=== PATIENT | male | born 1985 ===

== ENCOUNTER 2017-05-19 16:18 | Emergency (ER) | payer SELFPAY ==
[2017-05-19 16:23] VITALS: BMI 32.1
[2017-05-19 16:25] VITALS: BP 136/92; PULSE 93; RESP 18; TEMP 98.7; O2SAT 98
--- NOTE | 2017-05-19 16:50 | C.PDOC ---
History Of Present Illness 32 year old male presents to the emergency department complaining of right eye redness since waking up today. Associated with crusting and discharge. States he slept with contacts in and woke up like this. He wears monthly disposable contacts. No visual changes, foreign body sensation, fever, or diplopia. PMD: none Time Seen by Provider: 05/19/17 16:29 Chief Complaint (Nursing): Eye Problem History Per: Patient History/Exam Limitations: no limitations Onset/Duration Of Symptoms: Days (x1) Current Symptoms Are (Timing): Still Present Injury To Eye?: No Wears Contact Lens?: Yes Past Medical History Reviewed: Historical Data, Nursing Documentation, Vital Signs Vital Signs: Last Vital Signs Temp 98.7 F 05/19/17 16:23 Pulse 93 H 05/19/17 16:23 Resp 18 05/19/17 16:23 BP 136/92 H 05/19/17 16:23 Pulse Ox 98 05/19/17 18:45 - Medical History PMH: No Chronic Diseases Surgical History: No Surg Hx Family History: States: Unknown Family Hx - Social History Hx Tobacco Use: Yes Hx Alcohol Use: Yes Hx Substance Use: No - Immunization History Hx Tetanus Toxoid Vaccination: No Hx Influenza Vaccination: No Hx Pneumococcal Vaccination: No Review Of Systems Except As Marked, All Systems Reviewed And Found Negative. Constitutional: Negative for: Fever Eyes: Positive for: Redness (right eye, (+) discharge). Negative for: Vision Change, Other (foreign body sensation) Physical Exam - Physical Exam Appears: Non-toxic, No Acute Distress Skin: Normal Color, Warm, Dry Head: Atraumatic, Normacephalic Eye(s): bilateral: PERRL, EOMI, right: Other (Mild conjunctival injection and discharge to right eye), left: Normal Inspection Nose: Normal Oral Mucosa: Moist Neck: Normal ROM, Supple Chest: Symmetrical Respiratory: No Accessory Muscle Use, Other (speaking full sentences) Neurological/Psych: Oriented x3, Normal Speech, No Other (focal deficits) ED Course And Treatment O2 Sat by Pulse Oximetry: 98 (RA) Pulse Ox Interpretation: Normal Progress Note: Instructed follow up with ophthalmology in 1-2 days. Disposition Counseled Patient/Family Regarding: Diagnosis, Need For Followup, Rx Given - Disposition Referrals: Jesu Smith MD [Staff Provider] - Disposition: HOME/ ROUTINE Disposition Time: 16:46 Condition: STABLE Additional Instructions: Discontinue contact lens use for at least 2 weeks. Discard lens case, drops, and disposable lenses. Prescriptions: Ciprofloxacin 0.3% [Ciloxan 0.3% Ophth SOLN] 2 drop OU Q2 #1 bottle Instructions: Conjunctivitis (Pinkeye) (DC) Forms: [facility] (Swedish), Work Excuse - POA Present On Arrival: None - Clinical Impression Clinical Impression: Conjunctivitis - PA / WORK FORCE ADVISOR / Resident Statement MD/DO has reviewed & agrees with the documentation as recorded. - Scribe Statement The provider has reviewed the documentation as recorded by the Scribe (Addie Levy) All medical record entries made by the Scribe were at my direction and personally dictated by me. I have reviewed the chart and agree that the record accurately reflects my personal performance of the history, physical exam, medical decision making, and the department course for this patient. I have also personally directed, reviewed, and agree with the discharge instructions and disposition.
== END 2017-05-19 17:08 | disposition home or self-care (01) ==
LOC: C.ER 16:18
DX: H10.9 Unspecified conjunctivitis (principal)

== ENCOUNTER 2017-10-26 12:15 | Emergency (ER) | payer MEDICAID, OTHER ==
[2017-10-26 12:15] VITALS: BMI 32.1
[2017-10-26 12:21] VITALS: BP 136/93; PULSE 91; RESP 18; TEMP 99.6; O2SAT 98
--- NOTE | 2017-10-26 12:45 | C.PDOC ---
History Of Present Illness 32 year old male present sot ED complaining of right calf pain from last night after playing basketball. Patient states he felt a "pop" in his right calf. Patient states he is ambulate with pain. Denies any joint injury and offers no other medical complaints. Time Seen by Provider: 10/26/17 12:18 Chief Complaint (Nursing): Lower Extremity Problem/Injury History Per: Patient History/Exam Limitations: no limitations Onset/Duration Of Symptoms: Days Current Symptoms Are (Timing): Still Present Recent travel outside of the [place]: No Past Medical History Reviewed: Historical Data, Nursing Documentation, Vital Signs Vital Signs: Last Vital Signs Temp 99.6 F 10/26/17 12:21 Pulse 91 H 10/26/17 12:21 Resp 18 10/26/17 12:21 BP 136/93 H 10/26/17 12:21 Pulse Ox 98 10/26/17 12:51 Surgical History: No Surg Hx Family History: States: No Known Family Hx - Social History Hx Tobacco Use: Yes Hx Alcohol Use: Yes Hx Substance Use: No - Immunization History Hx Tetanus Toxoid Vaccination: No Hx Influenza Vaccination: No Hx Pneumococcal Vaccination: No Review Of Systems Except As Marked, All Systems Reviewed And Found Negative. Musculoskeletal: Positive for: Other (right calf pain) Physical Exam - Physical Exam Appears: Non-toxic, No Acute Distress Skin: Warm, Dry Head: Atraumatic, Normacephalic Eye(s): bilateral: Normal Inspection, PERRL, EOMI Nose: Normal Chest: Symmetrical Cardiovascular: Rhythm Regular, No Murmur Respiratory: Normal Breath Sounds, No Rales, No Rhonchi, No Wheezing Gastrointestinal/Abdominal: Normal Exam, Soft, No Tenderness Extremity: Calf Tenderness (right calf), No Other (thompsons test, homans test, cellulitic process) Neurological/Psych: Oriented x3, Normal Speech ED Course And Treatment O2 Sat by Pulse Oximetry: 98 (RA) Pulse Ox Interpretation: Normal Medical Decision Making Medical Decision Making: Impression: right calf pain Plan * Ibuprofen 600 mg PO * Vasclab * * 1319 - negative doppler. Will treat for calf strain. Patient discharged home to follow up with pmd within 2 days Disposition Counseled Patient/Family Regarding: Studies Performed, Diagnosis, Need For Followup, Rx Given - Disposition Referrals: [facility] [Outside] Disposition: HOME/ ROUTINE Disposition Time: 13:20 Condition: STABLE Additional Instructions: follow up with your doctor or medical clinic within 2 days call to make an appointment take medication as needed for pain return to ER if symptoms worsens or progress Prescriptions: Naproxen [Naprosyn] 500 mg PO BID PRN #16 tab PRN Reason: Pain, Moderate (4-7) Instructions: Muscle Strain Forms: [facility] (Tanzanian), General Discharge Instructions - Clinical Impression Clinical Impression: Muscle strain - Scribe Statement The provider has reviewed the documentation as recorded by the Nerissa Brunoed Provider Attestation: All medical record entries made by the Nerissa were at my direction and personally dictated by me. I have reviewed the chart and agree that the record accurately reflects my personal performance of the history, physical exam, medical decision making, and the department course for this patient. I have also personally directed, reviewed, and agree with the discharge instructions and disposition.
--- NOTE | 2017-10-27 10:33 | VASCLAB ---
Date of service: 10/26/2017 PROCEDURE: Right Lower Extremity Venous Duplex Exam. HISTORY: calf pain PRIORS: None. TECHNIQUE: Right common femoral, femoral, popliteal and posterior tibial, peroneal and great saphenous veins were evaluated. Flow was assessed with color Doppler, compressibility, assessment of phasic flow and augmentation response. Report prepared by NOEMI Telles, RVT FINDINGS: RIGHT: 1. Common Femoral Vein: 1.1. Compressibility - Fully compressible: Thrombus - None: Flow - Phasic: Augmentation -Normal: Reflux - None. 2. Femoral Vein: 2.1. Compressibility - Fully compressible: Thrombus - None: Flow - Phasic: Augmentation -Normal: Reflux - None. 3. Popliteal Vein: 3.1. Compressibility - Fully compressible: Thrombus - None: Flow - Phasic: Augmentation -Normal: Reflux - None. 4. Posterior Tibial Vein: 4.1. Compressibility - Fully compressible: Thrombus - None: Flow - Phasic: Augmentation -Normal: Reflux - None. 5. Peroneal Vein: 5.1. Compressibility - Fully compressible: Thrombus - None: Flow - Phasic: Augmentation -Normal: Reflux - None. 6. Great Saphenous Vein: 6.1. Compressibility - Fully compressible: Thrombus -None: Flow - Phasic: Augmentation - Normal: Reflux - None. OTHER FINDINGS: IMPRESSION: No evidence of deep or superficial vein thrombosis of the right lower extremity with excellent venous flow. Normal valve function noted of the right side. Normal venous flow noted in the left common femoral vein.
== END 2017-10-26 13:36 | disposition home or self-care (01) ==
LOC: C.ER 12:15
DX: S86.911A Strain of unspecified muscle(s) and tendon(s) at lower leg level, right leg, initial encounter (principal); Y93.67 Activity, basketball